=== PATIENT | female | born 1965 | race Caucasian/White ===

== ENCOUNTER → 2017-06-16 | Outpatient (CLI) | payer MEDICARE, OTHER ==
--- NOTE | 2017-06-17 10:48 | MM ---
Reason for exam: screening (asymptomatic). Last mammogram was performed 2 years ago. History: Patient is postmenopausal. Family history of breast cancer in mother at age 46. Physical Findings: A clinical breast exam by your physician is recommended on an annual basis and results should be correlated with mammographic findings. MG 3D Screening Mammo W/Cad Bilateral CC and MLO view(s) were taken. Prior study comparison: June 26, 2015, mammogram, performed at [facility]. June 28, 2013, mammogram, performed at [facility]. The breast tissue is heterogeneously dense. This may lower the sensitivity of mammography. No suspicious abnormality. No significant changes when compared with prior studies. ASSESSMENT: Negative, BI-RAD 1 RECOMMENDATION: Routine screening mammogram of both breasts in 1 year.
== END | disposition home or self-care (01) ==
LOC: RADMAMWWP 15:06
PROVIDERS: ATTEND Family Medicine
DX: Z12.31 Encounter for screening mammogram for malignant neoplasm of breast (principal); Z80.3 Family history of malignant neoplasm of breast
CPT/HCPCS: 77063; 77067

== ENCOUNTER 2018-01-11 10:56 | Emergency (ER) | payer MEDICARE, OTHER ==
[2018-01-11 11:22] VITALS: BP 145/83; PULSE 66; RESP 20; TEMP 98.2
[2018-01-11] MEDS ORDERED: KETOROLAC 60 MG/2 ML VIAL IM STA (11:43)
[2018-01-11] MEDS ORDERED: ORPHENADRINE 30 MG/ML 2 ML VIAL IM STA (11:43)
--- NOTE | 2018-01-11 11:47 | ED ---
General Adult HPI - General Chief complaint: Recheck/Abnormal Lab/Rx Stated complaint: Tick Bite Time Seen by Provider: 01/11/18 11:15 Source: patient, RN notes reviewed Mode of arrival: ambulatory Limitations: no limitations - History of Present Illness Initial comments: This is a 52-year-old female presents to the emergency department complaining of neck stiffness over the last 2 weeks. Patient states she thinks she slept on her couch and that is what caused his neck. Recent states she noticed a small rash on her thigh and thought maybe she got Lyme disease from a tick bite even though she's never been exposed to any ticks and did not see a tick. Patient denies any numbness or weakness. Patient denies chest pain difficulty breathing first breath per patient denies any recent fever chills or cough. Patient denies abdominal pain patient denies nausea vomiting diarrhea - Related Data Home Medications Medication Instructions Recorded Confirmed Atenolol [Tenormin] 50 mg PO DAILY 03/26/17 03/26/17 DULoxetine HCL [Cymbalta] 30 mg PO BID 03/26/17 03/26/17 Ergocalciferol (Vitamin D2) 50,000 unit PO MOTH 03/26/17 03/26/17 [Vitamin D2] Levothyroxine Sodium [Synthroid] 50 mcg PO DAILY 03/26/17 03/26/17 Omeprazole 20 mg PO DAILY 03/26/17 03/26/17 clonazePAM [KlonoPIN] 1 mg PO HS 03/26/17 03/26/17 Previous Rx's Medication Instructions Recorded Dicyclomine [Bentyl] 20 mg PO QID PRN #15 tablet 03/26/17 Cyclobenzaprine [Flexeril] 10 mg PO TID #20 tab 01/11/18 Ketorolac [Toradol] 10 mg PO Q6HR #15 tab 01/11/18 Allergies Allergy/AdvReac Type Severity Reaction Status Date / Time haloperidol [From Haldol] Allergy Rash/Hives Verified 01/11/18 11:21 latex Allergy Rash/Hives Verified 01/11/18 11:21 venlafaxine [From Effexor] Allergy Rash/Hives Verified 01/11/18 11:21 wool Allergy Rash/Hives Verified 01/11/18 11:21 Review of Systems ROS Statement: Those systems with pertinent positive or pertinent negative responses have been documented in the HPI. ROS Other: All systems not noted in ROS Statement are negative. Past Medical History Past Medical History: Hypertension, Thyroid Disorder History of Any Multi-Drug Resistant Organisms: None Reported Past Surgical History: Cholecystectomy Past Psychological History: Bipolar Smoking Status: Never smoker Past Alcohol Use History: Occasional Past Drug Use History: None Reported General Exam - General Exam Comments Initial Comments: GENERAL: Patient is well-developed and well-nourished. Patient is nontoxic and well- hydrated and is in no acute distress. ENT: Neck is soft and supple. No significant lymphadenopathy is noted. Oropharynx is clear. Moist mucous membranes. Neck has full range of motion without eliciting any pain. EYES: The sclera were anicteric and conjunctiva were pink and moist. Extraocular movements were intact and pupils were equal round and reactive to light. Eyelids were unremarkable. PULMONARY: Unlabored respirations. Good breath sounds bilaterally. No audible rales rhonchi or wheezing was noted. CARDIOVASCULAR: There is a regular rate and rhythm without any murmurs gallops or rubs. ABDOMEN: Soft and nontender with normal bowel sounds. SKIN: Patient has a small circular bruise on the left thigh NEUROLOGIC: Patient is alert and oriented x3. Cranial nerves II through XII are grossly intact. Motor and sensory are also intact. Normal speech, volume and content. Symmetrical smile. MUSCULOSKELETAL: Patient has very tender trapezius muscles bilaterally LYMPHATICS: No significant lymphadenopathy is noted PSYCHIATRIC: Normal psychiatric evaluation. Limitations: no limitations Course Vital Signs 01/11/18 11:18 Temperature 98.2 F Pulse Rate 66 Respiratory 20 Rate Blood Pressure 145/83 O2 Sat by Pulse 99 Oximetry Disposition Clinical Impression: Trapezius muscle strain Disposition: HOME SELF-CARE Condition: Good Instructions: Muscle Strain (ED) Prescriptions: Cyclobenzaprine [Flexeril] 10 mg PO TID #20 tab Ketorolac [Toradol] 10 mg PO Q6HR #15 tab Is patient prescribed a controlled substance at d/c from ED?: No Referrals: Daltno Joshi MD [Primary Care Provider] - 1-2 days Time of Disposition: 11:47
== END 2018-01-11 12:16 | disposition home or self-care (01) ==
LOC: EC 10:56
DX: S16.1XXA Strain of muscle, fascia and tendon at neck level, initial encounter (principal); R21 Rash and other nonspecific skin eruption; I10 Essential (primary) hypertension; E07.9 Disorder of thyroid, unspecified; F31.9 Bipolar disorder, unspecified; Z79.899 Other long term (current) drug therapy; Z91.040 Latex allergy status; Z91.09 Other allergy status, other than to drugs and biological substances; Z88.8 Allergy status to other drugs, medicaments and biological substances
CPT/HCPCS: 99282; 96372 ×2; J2360; J1885